=== PATIENT | male | born 1965 | race African-American/Black ===

== ENCOUNTER 2017-02-10 07:52 | Emergency (ER) | payer MEDICARE, OTHER ==
[2017-02-10] MEDS ORDERED: LIDOCAINE 1% INJ-PF (10 MG/ML) 30 ML SDV INJ ONE (09:33)
--- NOTE | 2017-02-10 09:38 | ER Document Report ---
ED General - General Mode of Arrival: Ambulatory Information source: Patient TRAVEL OUTSIDE OF THE [place] IN LAST 30 DAYS: No - HPI Patient complains to provider of: Abscess to the left 4th digit Associated symptoms: Other - see above <NAV KILPATRICK - Last Filed: 02/10/17 09:33> <FEDE TILLMAN - Last Filed: 02/10/17 10:41> - General Chief Complaint: Hand Swelling Stated Complaint: LEFT HAND FINGER SWELLING Notes: 51 year old male with history of hypertension presents to the ED complaining of an abscess to the left 4th digit. Finger is swollen and tender to palpation. Patient denies history of smoking or any past surgical history. (NAV KILPATRICK) - Related Data Allergies/Adverse Reactions: No Known Allergies Allergy (Verified 02/10/17 07:54) Past Medical History - General Information source: Patient - Social History Smoking Status: Never Smoker Chew tobacco use (# tins/day): No Frequency of alcohol use: None Drug Abuse: None Family History: Reviewed & Not Pertinent Patient has suicidal ideation: No Patient has homicidal ideation: No - Past Medical History Cardiac Medical History: Reports: Hx Hypertension Renal/ Medical History: Denies: Hx Peritoneal Dialysis Surgical Hx: Negative - Immunizations Hx Diphtheria, Pertussis, Tetanus Vaccination: Yes <NAV KILPATRICK - Last Filed: 02/10/17 09:33> Review of Systems - Review of Systems Constitutional: No symptoms reported EENT: No symptoms reported Cardiovascular: No symptoms reported Respiratory: No symptoms reported Gastrointestinal: No symptoms reported Genitourinary: No symptoms reported Male Genitourinary: No symptoms reported Musculoskeletal: No symptoms reported Skin: See HPI, Other - abscess to the left 4th digit. Hematologic/Lymphatic: No symptoms reported Neurological/Psychological: No symptoms reported -: Yes All other systems reviewed and negative <NAV KILPATRICK - Last Filed: 02/10/17 09:33> Physical Exam - General General appearance: Alert In distress: None - HEENT Head: Normocephalic, Atraumatic Eyes: Normal Extraocular movements intact: Yes Pupils: PERRL - Respiratory Respiratory status: No respiratory distress - Cardiovascular Rhythm: Regular - Abdominal Inspection: Normal Distension: No distension Tenderness: Nontender - Back Back: Normal - Extremities General upper extremity: Normal inspection, Normal ROM General lower extremity: Normal inspection, Normal ROM, Normal weight bearing - Neurological Neuro grossly intact: Yes - Psychological Associated symptoms: Normal affect, Normal mood - Skin Skin Temperature: Warm Skin Moisture: Dry Skin Color: Other - see skin exam below Skin irregularity: other - paronychia to the dorsal base of the nail of the left 4th digit. Swollen and bulging with pus. Skin is intact. No active drainage. Location of irregularity: Other - dorsal base of the nail of the left 4th digit Irregularity with: Swelling <NAV KILPATRICK - Last Filed: 02/10/17 09:33> - Extremities General upper extremity: No: Normal inspection - The left fourth finger has a rather large paronychia with the skin stretched and a large amount of pus noted under the skin. Skin remains intact. There is minimal swelling on the volar aspect and there is no tenderness to palpate over the volar aspect. After incision and drainage was accomplished and the wound was irrigated out, there was no evidence of infection getting under the nail or into the volar aspect of the finger. <FEDE TILLMAN - Last Filed: 02/10/17 10:41> - Vital signs Vitals: Temp Pulse Resp BP Pulse Ox 97.6 F 64 14 115/70 97 02/10/17 07:56 02/10/17 07:56 02/10/17 07:56 02/10/17 07:56 02/10/17 07:56 Procedures - Incision and Drainage Left Dorsal Finger Time completed: 10:35 Type: Simple Anesthetic type: 1% Lidocaine mL's of anesthetic: 6 Blade size: 11 I&D procedure: Shurclens applied, Iodoform packing placed Incision Method: Incision made by scalpel Amount/type of drainage: 1 ml of pus <FEDE TILLMAN - Last Filed: 02/10/17 10:41> - Incision and Drainage Left Dorsal Finger Notes: 02/10/17 10:39 Incision and drainage of paronychia releasing large amount of pus. Irrigated out with normal saline, packed with quarter-inch (FEDE TILLMAN) Discharge <NAV KILPATRICK - Last Filed: 02/10/17 09:33> <FEDE TILLMAN - Last Filed: 02/10/17 10:41> - Discharge Clinical Impression: Paronychia of finger of left hand Condition: Stable Disposition: HOME, SELF-CARE Additional Instructions: Paronychia: You have an infection between the nail and the surrounding skin, called a paronychia. The germs infect the area after a minor skin injury, such as a hangnail. This infection is treated by releasing the pus. This is usually done by the skin from the nail. If the infection has spread underneath the nail, partial removal of the nail may be necessary. Hot-soak the area three or four times daily. Antibiotics are often given, but are not always necessary. Healing takes about a week. If pain or swelling becomes severe or if you develop fever or chills, call the doctor or return for re-examination. TAKE THE MEDICATION PRESCRIBED. ELEVATE THE HAND. REMOVE THE GAUZE PACKING TOMORROW AFTERNOON AND START SOAKING IN WARM WATER. KEEP THE WOUND CLEAN AND DRESSED. RETURN IF ANY PROBLEMS. Prescriptions: Doxycycline Hyclate 100 mg PO BID #10 tablet. Hydrocodone/Acetaminophen [Dudley 5-325 mg Tablet] 1 tab PO Q4 PRN #15 tablet PRN Reason: Scribe Attestation: 02/10/17 10:34 I personally performed the services described in the documentation, reviewed and edited the documentation which was dictated to the scribe in my presence, and it accurately records my words and actions. (FEDE TILLMAN) Scribe Documentation - Scribe Written by Jem:: Jem Martinez, 02/10/2017 0939 acting as scribe for :: Wilber <NAV KILPATRICK - Last Filed: 02/10/17 09:33>
[2017-02-10 10:59] VITALS: BP 103/49
== END 2017-02-10 10:59 | disposition home or self-care (01) ==
LOC: ER 07:52
PROC: 0H9GXZZ Drainage of Left Hand Skin, External Approach (ICD-10-PCS; principal; 2017-02-10)
DX: L03.012 Cellulitis of left finger (principal); I10 Essential (primary) hypertension
CPT/HCPCS: 99283